=== PATIENT | male | born 1955 | race Caucasian/White ===

== ENCOUNTER 2019-05-30 23:00 | Inpatient (IN) | payer OTHER, MEDICAID ==
[~2019-05-30] VITALS: Ht 170.2 cm; Wt 68.4 kg
--- NOTE | ~2019-05-30 | PROC ---
[facility] [address] [place] [address] PROCEDURE REPORT Name: DAVID SCHMIDT Room: [address] IN ..#: [id number] Admission: 05/31/19 Attend Phys: Lupillo Lewis MD Discharge: 06/08/19 Date of : 57 Report #: [id number] THIS REPORT FOR: //name// For GI report, please see the Provation report in Perceptive 7 content. By: [id number] Records Staff RUTH ANN /JHONY
[~2019-05-30 23:00] MED LIST: ALDACTONE25 MG PO; AMBIEN 10 MG TA10 MG PO; ASPIR 8181 MG PO; BUPROPION HCL150 M1 PO; CARDIZEM CD120 MG PO; CEPHALEXIN 500500 M3 PO; CIPRO500 MG PO; COREG; COREG6.25 MG PO; COUMADIN 5 MG TA5 M1 PO; CRESTOR10 MG PO; CYMBALTA60 MG PO; DOXYCYCLINE 10100 MG PO; EFFIENT10 MG PO; FLAGYL500 MG PO; GABAPENTIN100 MG PO; HYDROCODONE-AP1 EAC6 PO; LANOXIN 0.250.25 M1 PO; LASIX 20 MG TAB20 MG PO; METOLAZONE 5 MG5 MG PO; NEXIUM40 MG PO; NITROGLYCERIN0.4 MG SUBLING; NORCO 10-325 T1 EACH PO; NORCO 5-325 TA1 EACH PO; OXYGEN; OXYGEN NASAL; POTASSIUM20 PO; PROVENTIL; RANEXA500 MG PO; RANITIDINE; SINGULAIR 10 MG10 M1 PO; SPIRIVA INH; SPIRONOLACTONE; SYMBICORT160 MCG/4. INH; TESSALON PERLE100 MG PO; VENTOLIN HFA 1818 GM INH; XANAX 0.5 MG0.5 MG PO; ZANTAC 150MG T150 MG PO; [UNRECOGNIZED DRUG - OTHER]
[2019-05-30 23:02] VITALS: BP 133/90
[2019-05-30 23:24] LABS: HEMATOCRIT 50.8 % (42.0-52.0); MCH 30.2 pg (26.0-34.0); MCHC 33.5 g/dL (28.0-37.0); MCV 90.2 fL (80.0-100.0); MPV 8.5 fl. (7.2-11.1); NUCLEATED RBCS 0 /100WBC; PLATELET COUNT* 220 thou/uL (150-400); RBC 5.63 mil/uL (4.50-6.00); RDW-CV 14.4 % (10.5-14.5); WBC 9.4 thou/uL (4.0-11.0)
[2019-05-30 23:32] LABS: CALCIUM 8.2 mg/dL (8.5-10.1); CREATININE 0.7 mg/dL (0.6-1.3)
[2019-05-30 23:51] LABS: ALBUMIN 3.4 g/dL (3.4-5.0); TOTAL BILIRUBIN 0.4 mg/dL (<0.1-1.0); TOTAL PROTEIN 7.2 g/dL (6.4-8.2); TROPONIN-I LEVEL 0.06 ng/mL (<0.06)
[2019-05-31] VITALS (46 sets, daily range): BP systolic 88–140; BP diastolic 39–84
[2019-05-31 00:10] LABS: ABSOLUTE BASOPHILS 0.2 thou/uL (0.0-0.2); ABSOLUTE EOSINOPHILS 1.8 thou/uL (0.0-0.7); ABSOLUTE LYMPHOCYTES 2.9 thou/uL (0.8-5.3); ABSOLUTE MONOCYTES 0.8 thou/uL (0.0-1.2); ABSOLUTE NEUTROPHILS 3.7 thou/uL (1.6-8.1); PLATELET ESTIMATE ADEQUATE; TOXIC GRANULATION 1+
[2019-05-31 01:55] LABS: BE -4.1 mmol/L (-2 to +3); PO2 65.1 mmHg (75.0-100.0)
[2019-05-31 01:58] LABS: PCO2 50.9 mmHg (35.0-45.0); pH 7.279 (7.340-7.450)
[2019-05-31 04:22] LABS: BE -4.8 mmol/L (-2 to +3)
[2019-05-31 04:24] LABS: PCO2 56.8 mmHg (35.0-45.0); PO2 136.3 mmHg (75.0-100.0); pH 7.238 (7.340-7.450)
--- NOTE | 2019-05-31 06:39 | NUR ---
PATIENT ON UNIT AT 0330. PATIENT AGITATED AND PULLING AT LINES AND BIPAP. ADMINISTERED ATIVAN PER ORDER AND PLACED PATIENT IN BILATERAL SOFT WRIST RESTRAINTS. PATIENT HAS CALMED DOWN SINCE THEN AND RESTRAINTS ARE CURRENTLY OFF PATIENT. TREJO CATHETER PLACED FOR URINARY RETENTION, IMMEDIATE DRAIN OF 1150 ML URINE. UNABLE TO DO FULL ADMISSION DUE TO PATIENT BEING UNRESPONSIVE AND NO FAMILY OR FRIENDS AVAILABLE. BIPAP IN PLACE, O2 SAT 94%. BLOOD PRESSURES SOFT, MAP HAS STAYED > 65
[2019-05-31 12:37] LABS: PO2 87.9 mmHg (75.0-100.0)
[2019-05-31 12:40] LABS: pH 7.286 (7.340-7.450)
--- NOTE | 2019-05-31 14:03 | NUR ---
UNABLE TO MEET WITH PATIENT. HE WAS SEDATED AFTER AGRESSIVE/AGITATED BEHAVIORS WITH STAFF AND IN CT. SLEEPING. NO OTHER FAMILY AT BEDSIDE X2 ATTEMPTS.
--- NOTE | 2019-05-31 15:10 | NUR ---
PATIENT TOLERATED OFF BIPAP FOR ONE HOUR FOR PILLS AND REST. WILL TRY AGAIN AT DINNER.
--- NOTE | 2019-05-31 18:00 | NUR ---
PATIENT PROGRESING WELL TOWARDS GOALS. CIWAS TRENDING DOWN. UP TO COMMODE TO HAVE BOWEL MOVEMENT. BREAKS FROM BIPAP OK TOLERATED. EATING DINNER AT THIS TIME. NO PAIN, NAUSEA OR SHORTNESS OF AIR. PAGING DOCTOR FOR HOME MEDICATIONS TO BE REORDERED. BED IN LOWEST POSITION, CALL LIGHT IN REACH, FALL PRECAUTIONS IN PLACE.
[2019-06-01] VITALS (20 sets, daily range): BP systolic 98–136; BP diastolic 38–79
--- NOTE | 2019-06-01 07:30 | NUR ---
0730 ASSUMED CARE OF PT. PLEASE SEE DOCUMENTED ASSESSMENT. PT IS ALERT TO PERSON, PLACE. STATED IT WAS JUNE. CORRECT DATE PROVIDED TO PT. PT HAS BEEN TAKEN OFF OF BIPAP BY RT AND PLACED ON 2L PER NC. ABG'S TO BE DRAWN. GOALS THIS SHIFT ARE TO: MONITOR RESPIRATORY STATUS, GET OUT OF BED FOR MEALS, EAT, ANTIBIOTICS, AND REHYDRATE.
[2019-06-01 08:18] LABS: BE 2.4 mmol/L (-2 to +3); PCO2 48.6 mmHg (35.0-45.0); PO2 65.5 mmHg (75.0-100.0); pH 7.384 (7.340-7.450)
[2019-06-01 08:42] LABS: HEMATOCRIT 48.5 % (42.0-52.0); HEMOGLOBIN 15.8 gm/dL (14.0-18.0); MCH 29.5 pg (26.0-34.0); MCHC 32.5 g/dL (28.0-37.0); MCV 90.8 fL (80.0-100.0); MPV 8.4 fl. (7.2-11.1); NUCLEATED RBCS 0 /100WBC; PLATELET COUNT* 197 thou/uL (150-400); RBC 5.34 mil/uL (4.50-6.00); RDW-CV 14.7 % (10.5-14.5)
[2019-06-01 08:56] LABS: CALCIUM 8.6 mg/dL (8.5-10.1); CREATININE 0.8 mg/dL (0.6-1.3); POTASSIUM 4.5 mmol/L (3.5-5.1); TOTAL BILIRUBIN 0.3 mg/dL (<0.1-1.0); TOTAL PROTEIN 6.4 g/dL (6.4-8.2)
[2019-06-01 09:48] LABS: ABSOLUTE LYMPHOCYTES 0.8 thou/uL (0.8-5.3); ABSOLUTE MONOCYTES 0.7 thou/uL (0.0-1.2); ABSOLUTE NEUTROPHILS 11.6 thou/uL (1.6-8.1); ANISOCYTOSIS 1+; PLATELET ESTIMATE ADEQUATE; POIKILOCYTOSIS 1+
--- NOTE | 2019-06-01 11:00 | NUR ---
CHART REVIEWED, SPOKE WITH PT. DIFFICULTY KEEPING PT AWAKE DURING THE CONVERSATION. PT STATES HE LIVES IN A MOTEL WITH HIS SIGNIFICANT OTHER, LA NENA. HE SAID THEY DO NOT HAVE A CAR. COULD NOT GET AN ANSWER FROM HIM ON HOW THEY GET GROCERIES, ETC. SPOKE WITH NURSE. SHE SAID THAT PT DOES NOT HAVE ANY CHILDREN, LA NENA HAS 3. LA NENA JUST GOT OUT OF THE HOSPITAL. CASE MGT WILL CONTINUE TO FOLLOW AND ASSESS MORE COMPLETELY AT A LATER DATE.
--- NOTE | 2019-06-01 11:22 | NUR ---
DR. HUMPHRIES HERE ON UNIT. UPDATED ON PT'S PROGRESS. PT WILL NOW BE TELE STATUS.
--- NOTE | 2019-06-01 12:09 | CON ---
[facility] [address] [place] [address] CONSULTATION Name: DAVID SCHMIDT Room: [address] IN M.R.#: [id number] Admission: 05/31/19 Attend Phys: Lupillo Lewis MD Discharge: Date of : 57 Report #: [id number] THIS REPORT FOR: //name// CC: Ru Lewis NEW PATIENT EVALUATION REASON FOR EVALUATION: Acute respiratory failure, altered mental status, known to have COPD. HISTORY OF PRESENT ILLNESS: The patient is a 63-year-old gentleman known to have history of COPD. Last pulmonary function test in the system shows FEV1 of 41% consistent with severe COPD. He came in with worsening shortness of breath. History was obtained from the staff records. The patient is currently on BiPAP. Apparently, the patient was feeling sick with cough over 1 week, has nasal drainage. When he came in, had severe bronchospasm and wheezing. The patient was in severe respiratory distress. Arterial blood gas shows acute on chronic hypercapnic respiratory failure. The patient was intoxicated with alcohol, subsequently was placed on BiPAP, received a breathing treatment and steroids with improvement. Denies any fever, chills, nausea or vomiting. CT angiogram, which I have reviewed, showed significant emphysematous changes. Has right side hazy infiltrate with mediastinal lymphadenopathy, likely reactive. A chest x-ray, right base, hazy infiltrate. Currently, the patient is tolerating BiPAP. Actually he is on AVAPS with tidal volume of 500 and rate of 16. He is not wheezing on my examination. Following simple commands. REVIEW OF SYSTEMS: As above, runny nose, nasal congestion. No fever, no nausea, no vomiting. History of wheezing. Otherwise, unable to obtain comprehensive review of systems as the patient is on BiPAP and is lethargic with alcohol abuse. PAST MEDICAL HISTORY: From records, has history of myocardial infarction in 2001. A previous echocardiogram showed cardiomyopathy, has pacemaker. He has COPD as above with FEV1 41%. History of peptic ulcer disease, anemia. HOME MEDICATIONS: Reviewed as in the chart. On Symbicort, on Singulair. ALLERGIES: ALLERGIC TO LISINOPRIL. FAMILY HISTORY: No pertinent family history of lung disease, per history. SOCIAL HISTORY: Continues to smoke, continues to abuse alcohol, drinks up to 4 [place] [address] CONSULTATION Name: DAVID SCHMIDT Room: [address]#: [id number] Admission: 05/31/19 Attend Phys: Lupillo Lewis MD Discharge: Date of : 57 Report #: [id number] PHYSICAL EXAMINATION: GENERAL: The patient is alert, lethargic, following simple commands; however, lethargic. He is on treatment for alcohol withdrawal. HEAD AND NECK: Supple. Oral mucosa clear. Eyes, anicteric. CHEST: He has no wheezing. Good air movement to both lung bases, diffusely. CARDIOVASCULAR: Regular rhythm, normal S1, S2. ABDOMEN: Soft, nontender. EXTREMITIES: No edema. NEUROLOGIC: Lethargic. PSYCHIATRIC: Unable to evaluate the patient on BiPAP. SKIN: No changes. LABORATORY AND OTHER DATABASE: A pH when he first came in, 7.27; pCO2 50; pO2 65, which has improved to 136. Oxygenation improved to 136 with BiPAP 14/6. However, now on AVAPS as above. Tox screen showed positive serum alcohol, 360. D-dimer 1.8. Hematology: White blood cell count 9.5, platelet 220, hemoglobin 17. CT angiogram, which I have reviewed, significant emphysema as above, right hazy infiltrate, ground glass opacity on the side, suspect aspiration, reactive adenopathy. Has hiatal hernia. No PE. ASSESSMENT AND PLAN: Acute on chronic hypoxic hypercapnic respiratory failure. The patient currently is on AVAPS, tolerating well, more alert. Suspect chronic obstructive pulmonary disease exacerbation with associated aspiration pneumonia. We will add Flagyl for anaerobic coverage. Currently on antibiotics. Agree with IV steroids. Agree with bronchodilator treatment. 1. Chronic obstructive pulmonary disease with exacerbation, has severe chronic obstructive pulmonary disease, FEV1 of 41%. With his severity of chronic obstructive pulmonary disease and hypercapnia, will benefit from home Trilogy. 2. Pneumonia, suspect aspiration. We will need followup CT to confirm resolution in 3 months. 4. Alcohol abuse with hiatal hernia and increased risk of aspiration. Aspiration precaution recommended. Obtain followup ABG. A followup chest x-ray. He was treated with IV fluid for sepsis. Need to obtain followup chest x-ray in the morning, may need diuresis for volume overload, especially with known previous history of cardiomyopathy. We will also obtain arterial blood gas in the morning as well as at this time to confirm improvement. [address] [place] [address] CONSULTATION Name: DAVID SCHMIDT [facility] M.R.#: [id number] Admission: 05/31/19 Attend Phys: Lupillo Lewis MD Discharge: Date of : 57 Report #: [id number] This was discussed with RT, RN and the patient. Critical care time taking care of the patient was 42 minutes. <ELECTRONICALLY SIGNED> By: Nancy Mclean MD 06/01/19 1209 1230 [id number] Mclean MD /nt
--- NOTE | 2019-06-01 14:10 | NUR ---
PT BECOMING INCREASINGLY AGITATED WITH ELEVATED CIWA SCORE, NOW AT 19. PT GIVEN PRN ATIVAN 2MG IVP. PT RESTLESS, PULLING AT LINES, STATING THAT "PITA" IS COMING TO PICK HIM UP, HAVING AUDITORY/VISUAL HALLUCINATIONS. REORIENTATION NOT POSSIBLE AT THIS TIME. PT ASSISTED BACK INTO BED FROM CHAIR. BED ALARM ON FOR SAFETY.
--- NOTE | 2019-06-01 14:53 | EKG ---
[place] [address] ELECTROCARDIOGRAM REPORT Name: DAVID SCHMIDT Room: [address] ADM IN M.R.#: [id number] Admission: 05/31/19 Attend Phys: Lupillo Lewis MD Discharge: Date of : 57 Report #: [id number] THIS REPORT FOR: //name// [facility] ED Test Date: 2019-05-30 Test Time: 23:08:58 Pat Name: DAVID SCHMIDT Department: Room: [address] Gender: M Manager Customer Service: SMOOTH : 1955 Requested By: Dilma Decker Order Number: [id number] Lex MD: Claude Tovar Measurements Intervals [place] Rate: 76 P: 50 VA: 146 QRS: 51 QRSD: 111 T: 156 QT: 426 QTc: 480 Interpretive Statements Sinus rhythm Atrial premature complexes Anterolateral infarct, age indeterminate Compared to ECG 12/13/2016 08:04:22 Atrial premature complex(es) now present T-wave abnormality no longer present Possible ischemia no longer present Myocardial infarct finding still present Electronically Signed On 06-01-2019 14:52:51 CDT by Claude Tovar [email or web address] <ELECTRONICALLY SIGNED> By: Claude Tovar MD, [facility] 06/01/19 1452 Claude Tovar MD, [facility] /EPI
--- NOTE | 2019-06-01 18:49 | NUR ---
OUTCOME SUMMARY: MINIMAL PROGRESSION TOWARDS GOALS. CIWA AT 8 THIS AM AND PT UP TO CHAIR FOR SEVERAL HOURS. GOOD APPETITE AT BREAKFAST AND LUNCH. CIWA ELEVATED THIS AFTERNOON AND PT REQUIRED TWO PRN DOSES OF ATIVAN IVP. PT HAVING FREQUENT AUDITORY/VISUAL HALLUCINATIONS. GOOD UOP AFTER DIURESIS. O2 INCREASED FROM 2L TO 4L THIS SHIFT W/SATS IN THE LOW 90'S. OVERALL PROGNOSIS: POOR.
--- NOTE | 2019-06-01 18:55 | NUR ---
PT TELE STATUS BUT PER PULMONARY NEEDED TO REMAIN IN ICU TODAY.
[2019-06-02] VITALS (12 sets, daily range): BP systolic 114–142; BP diastolic 69–85
[2019-06-02 03:43] LABS: ABSOLUTE BASOPHILS 0.1 thou/uL (0.0-0.2); ABSOLUTE LYMPHOCYTES 0.3 thou/uL (0.8-5.3); ABSOLUTE MONOCYTES 0.4 thou/uL (0.0-1.2); ABSOLUTE NEUTROPHILS 13.1 thou/uL (1.6-8.1); BASOPHILS 0.6 %; HEMATOCRIT 48.1 % (42.0-52.0); HEMOGLOBIN 15.8 gm/dL (14.0-18.0); LYMPHOCYTES 2.4 %; MCH 29.7 pg (26.0-34.0); MCHC 32.8 g/dL (28.0-37.0); MCV 90.5 fL (80.0-100.0); MONOCYTES 2.6 %; MPV 8.9 fl. (7.2-11.1); NUCLEATED RBCS 0 /100WBC; PLATELET COUNT* 214 thou/uL (150-400); POLYS 94.4 %; RBC 5.32 mil/uL (4.50-6.00); RDW-CV 14.7 % (10.5-14.5); WBC 13.9 thou/uL (4.0-11.0)
[2019-06-02 04:05] LABS: ALBUMIN 3.1 g/dL (3.4-5.0); CALCIUM 8.5 mg/dL (8.5-10.1); CREATININE 0.7 mg/dL (0.6-1.3); POTASSIUM 4.9 mmol/L (3.5-5.1); TOTAL BILIRUBIN 0.4 mg/dL (<0.1-1.0); TOTAL PROTEIN 6.5 g/dL (6.4-8.2)
--- NOTE | 2019-06-02 06:27 | NUR ---
VSS. NO AGITATED BEHAVIOR THIS SHIFT. PT HAS SLEEP WELL THROUGH THE NIGHT, AROUSABLE. CALL LIGHT WITHIN REACH.
--- NOTE | 2019-06-02 19:15 | NUR ---
PATIENT PROGRESSED WELL TOWARDS GOALS. CIWA'S REMAIN STABLE, SOME HALLUCINATIONS, VERY COOPERATIVE. NO PAIN, NAUSEA OR SHORNTESS OF AIR. BED IN LOWEST POSITION. I AGREE WITH ALL OTHER CHARTING FROM BERTIN Prescott
[2019-06-03 00:01] VITALS: BP 131/74
[2019-06-03 04:02] VITALS: BP 137/77
--- NOTE | 2019-06-03 04:50 | NUR ---
ASSUMED CARE AT 1910H, ON NC AT 4LPM AND TOLERATED. BACK TO BIPAP AT NIGHT. PT WITH OCCASIONAL CONFUSION. LATEST CIWA IS 2. KEPT PT ORIENTED. CONTINUE MONITORING AND TOWARDS GOAL.
[2019-06-03 08:04] VITALS: BP 124/67
[2019-06-03 09:22] LABS: ABSOLUTE LYMPHOCYTES 0.6 thou/uL (0.8-5.3); ABSOLUTE NEUTROPHILS 9.2 thou/uL (1.6-8.1); BASOPHILS 0.3 %; HEMATOCRIT 47.1 % (42.0-52.0); HEMOGLOBIN 15.5 gm/dL (14.0-18.0); LYMPHOCYTES 5.8 %; MCH 29.9 pg (26.0-34.0); MCV 90.7 fL (80.0-100.0); MONOCYTES 9.2 %; MPV 9.2 fl. (7.2-11.1); NUCLEATED RBCS 0 /100WBC; PLATELET COUNT* 193 thou/uL (150-400); POLYS 84.7 %; RBC 5.19 mil/uL (4.50-6.00); RDW-CV 14.4 % (10.5-14.5); WBC 10.9 thou/uL (4.0-11.0)
[2019-06-03 09:41] LABS: ALBUMIN 2.9 g/dL (3.4-5.0); ALKALINE PHOSPHATASE 54 U/L (46-116); ANION GAP 2 mmol/L (7-16); BUN 12 mg/dL (7-18); CALCIUM 8.8 mg/dL (8.5-10.1); CHLORIDE 103 mmol/L (98-107); CO2 35 mmol/L (21-32); CREATININE 0.8 mg/dL (0.6-1.3); GLUCOSE 109 mg/dL (70-99); POTASSIUM 4.7 mmol/L (3.5-5.1); SGOT 11 U/L (15-37); SGPT 19 U/L (30-65); SODIUM 140 mmol/L (136-145); TOTAL BILIRUBIN 0.5 mg/dL (<0.1-1.0); TOTAL PROTEIN 6.2 g/dL (6.4-8.2); TROPONIN-I LEVEL <0.06 ng/mL (<0.06)
[2019-06-03 11:00] VITALS: BP 132/77
--- NOTE | 2019-06-03 14:45 | 2DMMODE ---
[place] [address] 2 D/M-MODE ECHOCARDIOGRAM Name: DAVID CSHMIDT Room: 003-P [facility] IN [facility]#: [id number] Admission: 05/31/19 Attend Phys: Lupillo Lewis, Discharge: Date of : 57 Date of Service: 06/03/19 1445 Report #: [id number] THIS REPORT FOR: //name// APPROVED REPORT Study performed: 06/03/2019 09:47:12 EXAM: Comprehensive 2D, Doppler, and color-flow Echocardiogram Patient Location: In-Patient Room #: 003 Status: routine BSA: 1.89 HR: 80 bpm BP: 137/77 mmHg Rhythm: NSR Other Information Study Quality: Good Indications CAD Elevated Troponin 2D Dimensions IVSd: 13.88 (7-11mm) LVOT Diam: 20.36 (18-24mm) LVDd: 70.02 mm PWd: 11.86 (7-11mm) Ascending Ao: 25.92 (22-36mm) LVDs: 61.89 (25-40mm) Aortic Root: 33.17 mm Volumes Left Atrial Volume (Systole) LA ESV Index: 57.20 mL/m2 Aortic Valve AoV Peak Navjot.: 1.33 m/s AO Peak Gr.: 7.03 mmHg LVOT Max P.39 mmHg AO Mean Gr.: 3.83 mmHg LVOT Mean P.69 mmHg LVOT Max V: 0.59 m/s AO V2 VTI: 23.61 cm LVOT Mean V: 0.38 m/s CARRI (VTI): 1.45 cm2 LVOT V1 VTI: 10.53 cm Mitral Valve E/A Ratio: 1.50 MV Decel. Time: 141.93 [place] [address] 2 D/M-MODE ECHOCARDIOGRAM Name: DAVID SCHMIDT Room: [address] IN ..#: [id number] Admission: 05/31/19 Attend Phys: Lupillo Lewis, Discharge: Date of : 57 Date of Service: 06/03/19 1445 Report #: [id number] MV E Max Navjot.: 0.87 m/s MV PHT: 41.16 ms MVA (PHT): 5.35 cm2 TDI E/Medial E': 12.43 Medial E' Navjot.: 0.07 m/s Pulmonary Valve PV Peak Navjot.: 0.88 m/s PV Peak Gr.: 3.12 mmHg Tricuspid Valve RAP Estimate: 5.00 mmHg TR Peak Gr.: 28.40 mmHg RVSP: 33.00 mmHg PA Pressure: 33.00 mmHg Left Ventricle Left ventricle is severely dilated. The anterior apical mid to distal septal and anteroseptal mcintyre are akinetic. Mild concentric left ventricular hypertrophy. Left ventricular systolic function is severely decreased. LVEF is 20-25%. Transmitral Doppler flow pattern suggests restrictive physiology. Right Ventricle The right ventricle is normal size. The right ventricular systolic function is normal. ICD lead is present in the right ventricle. Atria Left atrium is severely dilated. Right atrium is mildly dilated. Aortic Valve Mild aortic valve sclerosis. No aortic regurgitation is present. There is no aortic valvular stenosis. Mitral Valve The mitral valve is normal in structure. Mild mitral regurgitation. No evidence of mitral valve stenosis. Tricuspid Valve The tricuspid valve is normal in structure. Trace tricuspid regurgitation. Mild pulmonary hypertension. Pulmonic Valve The pulmonary valve is normal in structure. There is no pulmonic [place] [address] 2 D/M-MODE ECHOCARDIOGRAM Name: DAVID SCHMIDT Room: [address] IN [facility]#: [id number] Admission: 05/31/19 Attend Phys: Lupillo Lewis, Discharge: Date of : 57 Date of Service: 06/03/19 1445 Report #: [id number] Great Vessels The aortic root is normal in size. IVC is normal in size and collapses >50% with inspiration. Pericardium There is no pericardial effusion. <Conclusion> Left ventricle is severely dilated. Mild concentric left ventricular hypertrophy. Left ventricular systolic function is severely decreased. LVEF is 20-25%. Transmitral Doppler flow pattern suggests restrictive physiology. The anterior apical mid to distal septal and anteroseptal mcintyre are akinetic. ICD lead is present in the right ventricle. Left atrium is severely dilated. Right atrium is mildly dilated. Mild aortic valve sclerosis. There is no aortic valvular stenosis. Mild mitral regurgitation. Trace tricuspid regurgitation. Mild pulmonary hypertension. IVC is normal in size and collapses >50% with inspiration. <ELECTRONICALLY SIGNED> By: Geoff Dozier MD, FACC 06/03/19 1445 1445 1445 Geoff Dozier MD, FACC /INF
[2019-06-03 16:00] VITALS: BP 118/73
--- NOTE | 2019-06-03 18:41 | NUR ---
PT A&O X3, CONFUSED AT TIMES. TREJO'S CATH OUT AT 11, PT VOIDING PER URINAL, INCONTINENT AT TIMES. TOLERATING DIET. PT SAT IN A RECLINER FOR 4-5 HRS. PT HAS VISUAL HALLUCINATIONS, SEEING PEOPLE IN THE ROOM WITH PLASTIC HEADS. NO AGITATION BUT TRIES TO GET OUT OF BED TO PEE. ATIVAN ADMINISTERED PER EMAR.
[2019-06-04 00:01] VITALS: BP 122/61
[2019-06-04 04:01] VITALS: BP 105/53
[2019-06-04 04:12] LABS: HEMATOCRIT 50.4 % (42.0-52.0); HEMOGLOBIN 16.6 gm/dL (14.0-18.0); MCH 29.7 pg (26.0-34.0); MPV 9.3 fl. (7.2-11.1); RBC 5.6 mil/uL (4.50-6.00); RDW-CV 14.6 % (10.5-14.5); WBC 9.2 thou/uL (4.0-11.0)
[2019-06-04 04:20] LABS: ALBUMIN 2.7 g/dL (3.4-5.0); CALCIUM 8.9 mg/dL (8.5-10.1); CREATININE 0.6 mg/dL (0.6-1.3); MAGNESIUM 1.7 mg/dL (1.8-2.4); POTASSIUM 4.8 mmol/L (3.5-5.1); TOTAL BILIRUBIN 0.7 mg/dL (<0.1-1.0); TOTAL PROTEIN 6.3 g/dL (6.4-8.2)
--- NOTE | 2019-06-04 06:28 | NUR ---
ASSUMED PATIENT CARE AT 1900. PATIENT ALERT AND ORIENTED TIMES FOUR BUT HARD TO UNDERSTAND HE MUMBLES. MINOR COMPLAINT OF A HEADACHE, PO MEDICATION GIVEN. NO HALLUCINATIONS NOTED THIS SHIFT, RN SPECIFICALLY QUESTIONED PATIENT ABOUT SEEING ANYONE OR ANYTHING IN THE ROOM. IVS PATENT TO FLUSHES. RN ASSESSMNET COMPLETED CHARTED
[2019-06-04 08:00] VITALS: BP 98/48
[2019-06-04 12:00] VITALS: BP 117/60
[2019-06-04 16:24] VITALS: BP 103/55
[2019-06-04 20:15] VITALS: BP 115/67
--- NOTE | 2019-06-04 20:44 | NUR ---
ASSUSSMED CARE OF PT APPROX 0730. REASSESSMENT COMPLETED CHARTED. MEDICATIONS GIVEN CHARTED. PT HAD EPISODE OF BOWEL INCONTINCE THIS SHIFT. HOURLY ROUNDED FOR PT SAFTEY, SAFTEY PRECAUTIONS IN PLACE. CALL LIGHT WITHIN REACH AND NEEDS MET. PT EDUCATION ABOUT PLAN OF CARE PT VERBALIZED UNDERSTANDING. PT SLEPT FOR MOST OF THIS SHIFT. NO TREMORS NOTED.
[2019-06-05] VITALS: BP 96/52
[2019-06-05 04:00] VITALS: BP 98/58
--- NOTE | 2019-06-05 06:03 | NUR ---
PT SLEPT MOST OF SHIFT. ASSESSMENT DOCUMENTED. MEDS GIVEN PER E-NOV. IV PATENT. NO REPORTS OF PAIN THIS SHIFT. BIPAP WORN PART OF NIGHT. O2 AT 4L NC. WILL CONTINUE WITH PLAN OF CARE.
[2019-06-05 08:00] VITALS: BP 102/60
--- NOTE | 2019-06-05 10:00 | NUR ---
ASSUMED CARE OF PT AT 0730. PT RESTING IN BED WAITING FOR BREAKFAST. PT A&0X4. PT TRACING SR WITH BBB/ V PACED ON THE SENIOR SQL SERVER DBA. ON 5L NC SAT 93%. PT DENIES ANY PAIN OR SHORTNESS OF BREATH AT THIS TIME. PT UP SBA TO BATHROOM. CIWA CHARTED-0. PT TO HAVE EGD ON FRIDAY. EFFIENT HELD THIS AM. PT GOAL FOR TODAY IS INCREASE ACTIVITY AND TITRATE OXYGEN. AM ASSESSMENT CHARTED. MEDICATIONS PER NOV. PT REPOSITIONS SELF. HOURLY ROUNDING OBSERVED. BED IN LOW POSITION. CALL LIGHT WITHIN REACH. WILL CONTINUE PLAN OF CARE.
[2019-06-05 11:40] VITALS: BP 106/66
[2019-06-05 15:31] VITALS: BP 103/65
--- NOTE | 2019-06-05 18:32 | NUR ---
NO ACUTE CHANGES THROUGHOUT SHIFT. REFER TO CHARTING. PT AMBULATED IN ROOM WITH NO DIFFICULTIES. UNABLE TO TITRATE OXYGEN- PT COMPLAINED OF PAIN X 1 THIS SHIFT-TREATED WITH PRN OXY WITH RELIEF. MEDICATIONS PER NOV. PT REPSOITIONS SELF. HOURLY ROUNDING OBSERVED. BED IN LOW POSITION. CALL LIGHT WITHIN REACH. WILL CONTINUE PLAN OF CARE.
[2019-06-05 21:00] VITALS: BP 108/65
[2019-06-06] VITALS (7 sets, daily range): BP systolic 84–121; BP diastolic 43–68
[2019-06-06 04:33] LABS: HEMATOCRIT 49.7 % (42.0-52.0); HEMOGLOBIN 16.1 gm/dL (14.0-18.0); MCH 29.2 pg (26.0-34.0); MCHC 32.5 g/dL (28.0-37.0); MCV 89.8 fL (80.0-100.0); MPV 8.9 fl. (7.2-11.1); RBC 5.53 mil/uL (4.50-6.00); RDW-CV 14.3 % (10.5-14.5); WBC 8.1 thou/uL (4.0-11.0)
[2019-06-06 04:51] LABS: ALBUMIN 2.7 g/dL (3.4-5.0); CALCIUM 8.4 mg/dL (8.5-10.1); CREATININE 0.8 mg/dL (0.6-1.3); MAGNESIUM 1.7 mg/dL (1.8-2.4); TOTAL BILIRUBIN 0.3 mg/dL (<0.1-1.0); TOTAL PROTEIN 5.7 g/dL (6.4-8.2)
--- NOTE | 2019-06-06 04:51 | NUR ---
PT SLEPT MOST OF SHIFT. ASSESSMENT DOCUMENTED. MEDS GIVEN PER E-MAR. IV PATENT, ABX INFUSED. PT REPORTS FRUSTERATION ABOUT NOT GETTING ENOUGH SLEEP. PT REFUSED BIPAP AND OVERNIGHT BREATHING TX. PT REPORTS PAIN IS CONTROLLED WITH MEDICATIONS. WILL CONTINUE WITH PLAN OF CARE.
--- NOTE | 2019-06-06 17:18 | NUR ---
ASSUMED CARE OF PT AT 0730. PT RESTING IN BED WAITING FOR BREAKFAST. PT ON 2L NC SAT 93%. DENIES ANY SHORTNESS OF BREATH. PT COMPLAINED OF PAIN X 1 THIS AFTERNOON-TREATED WITH PRN OXY WITH RELIEF. PT UP WITH SBA TO BATHROOM. CIWA COMPLETED-0. PT TRACING SR WITH BBB AND PAC'S/ A/V PACED ON THE CLOTHESPIN DRIER OPERATOR. PT NPO AFTER MIDNIGHT FOR EGD IN AM. TO HAVE CXR IN AM. STARTED ON PO AUGMENTIN TODAY. AM ASSESSMENT CHARTED. MEDICATIONS PER NOV. PT REPOSITIONS SELF. HOURLY ROUNDING OBSERVED. BED IN LOW POSITION. CALL LIGHT WITHIN REACH. WILL CONTINUE PLAN OF CARE.
[2019-06-07] VITALS (7 sets, daily range): BP systolic 94–115; BP diastolic 53–65
--- NOTE | 2019-06-07 04:48 | NUR ---
PT SLEPT MOST OF SHIFT. ASSESSMENT DOCUMENTED. MEDS GIVEN PER E-NOV. IV PATENT. PT REPORTS PAIN IS UNDER CONTROL THIS SHIFT. PT REMAINED NPO AFTER 0000. WILL CONTINUE WITH PLAN OF CARE.
--- NOTE | 2019-06-07 09:00 | NUR ---
ASSUMED CARE AFTER REPORT APPROX 0730. A&OX4, ABLE TO EXPRESS NEEDS TO STAFF. GUEST ATTENDANT IN PLACE, SR. O2 SATS 93% 2L NC. NPO FOR EGD SCHEDULED AT 1030 TODAY. UP AD [place] IN ROOM WITH STEADY GAIT TO BATHROOM. NO C/O SOA, PAIN, N/V OR OTHER DISTRESS. CALL LIGHT WITHIN REACH. HOURLY ROUNDING FOR SAFETY AND PATIENT NEEDS.
--- NOTE | 2019-06-07 09:41 | NUR ---
Nutrition: Screen for LOS. Wt WNL, no loss from admit. Albumin and LFT's low, BUN and CO2 high. Lasix and other meds reviewed. NPO for EGD today. Nsg noted pt with some confusion, tolerating po. Only intake recorded 90-100% Assess at low nutrition risk at this time.
--- NOTE | 2019-06-07 10:30 | NUR ---
PACU STAFF TRANSPORTED PATIENT VIA WC FOR GI PROCEDURE.
--- NOTE | 2019-06-07 11:00 | NUR ---
ELIER discussed disposition with Pt. Per Pt, he only has a portable concentrator through [facility] and believes that he will need a concentrator. ELIER updated Dr. ELIER contacted Liza at [facility] and informed of potential referral. O2 testing will need to be completed prior to dc. Pt's goal is to return home. Following.
--- NOTE | 2019-06-07 13:12 | NUR ---
PATIENT BACK TO UNIT VIA AND PACU STAFF. PATIENT TRANSFERRED FROM TO BED ON OWN. A&OX4, ABLE TO EXPRESS NEEDS TO STAFF. C/O PAIN IN NECK & HEAD. STATES IT IS HIS USUAL CHRONIC PAIN. PAIN SCALE NOT GIVEN AT THIS TIME BY PATIENT. REGULAR DIET TRAY DELIVERED TO ROOM. VS OBTAINED, WNL. CALL LIGHT WITHIN REACH.
--- NOTE | 2019-06-07 18:07 | NUR ---
PATIENT COMPLETED EDG TODAY. [place] WELL. GOOD APPETITE. PAIN MED X1 PRN FOR CHRONIC PAIN. PATIENT RESTING. CALL LIGHT WITHIN REACH.
[2019-06-08] VITALS: BP 98/45
[2019-06-08 04:00] VITALS: BP 105/61
--- NOTE | 2019-06-08 05:00 | NUR ---
ASSUMED PATIENT CARE AT 1900. PATIENT ALERT AND ORIENTED TIMES FOUR. MINOR COMPLAINT OF PAIN NOTED, CONTROLLED WITH ORAL MEDICATION. BRUISING ON BILATERAL ARMS HEALING. VACUUM EVAPORATION OPERATOR AND HOURLY ROUNDING COPLETED DOCUMENTED.
[2019-06-08 07:00] VITALS: BP 124/68
--- NOTE | 2019-06-08 08:20 | NUR ---
INITAL ASSESSMENT COMPLETED CHARTED. VSS. SR WITH BBB ON MONITOR. TELE D/C, M/S STATUS NOW. PT DENIES PAIN, CP, SOA, N/V/D AT THIS TIME. PT ALBARO ANY FURTHER NEEDS AT THIS TIME. HOURLY ROUNDING IN PLACE FOR PT SAFETY. CLWR.
[2019-06-08] MEDS ORDERED: PREDNISONE 10 M10 MG PO (10:29)
[2019-06-08] MEDS ORDERED: FLUCONAZOLE 10100 MG PO (10:29)
[2019-06-08] MEDS ORDERED: LASIX 40 MG TAB40 M1 PO (10:29)
[2019-06-08] MEDS ORDERED: AUGMENTIN 875-1 EACH PO (10:29)
[2019-06-08] MEDS ORDERED: COREG6.25 MG PO (10:29)
[2019-06-08] MEDS ORDERED: CIPRO500 MG PO (10:57)
[2019-06-08 11:16] VITALS: BP 124/68
--- NOTE | 2019-06-08 14:03 | CON ---
[address] [address] CONSULTATION Name: DAVID SCHMIDT Room: [address] IN M.R.#: [id number] Admission: 05/31/19 Attend Phys: Lupillo Lewis MD Discharge: 06/08/19 Date of : 57 Report #: [id number] THIS REPORT FOR: //name// CC: Ahalma Lewis DICTATED BY: Emily Blunt [facility] DATE OF SERVICE: 06/04/2019 Please note at the time of this dictation, the patient was seen and physically examined by myself. PCP: Unknown. HISTORY OF PRESENT ILLNESS: This is a 63-year-old man who was admitted with COPD exacerbation and respiratory failure. He has had pneumonia, aspiration, likely alcohol abuse and now with some withdrawal. CT scan showed some esophageal thickening in the distal part. He was complaining of some dysphagia and odynophagia with both liquids and solids for which we were consulted for further evaluation. The patient states this has been ongoing for several weeks and it is progressively getting worse. He states it feels like things get stuck in the back of his throat and on occasion, he will regurgitate or throw up. He has also been taking ibuprofen 2 times a day for extended period of time because he has been out of his pain pills, which he takes on a more regular basis. The patient, back in 2015, had an EGD colon. EGD showed a 5-6 mm hiatal hernia. Colonoscopy showed tubular adenoma polyps, diverticulosis and external hemorrhoids at that time. ALLERGIES: LISINOPRIL. MEDICATIONS: From home include Ranexa, digoxin, potassium, Spiriva, Ventolin, Coreg, Zantac, oxygen, Nexium, Symbicort, Singulair, Cymbalta, Crestor, metolazone, gabapentin, Xanax, Cardizem, bupropion, nitroglycerin, Egnar, Effient and aspirin. PAST MEDICAL HISTORY: Significant for heart disease and lung disease. PAST SURGICAL HISTORY: The patient had an AICD that has been placed. FAMILY HISTORY: Negative for any GI or female cancers. SOCIAL HISTORY: He has heavy alcohol abuse. He does smoke greater than a pack per day for the last 50 years. Denies any illegal drug use. REVIEW OF SYSTEMS: Twelve-point review [place] [address] CONSULTATION Name: DAVID SCHMIDT Room: [address]#: [id number] Admission: 05/31/19 Attend Phys: Lupillo Lewis MD Discharge: 06/08/19 Date of : 57 Report #: [id number] except what is mentioned in the HPI. PHYSICAL EXAMINATION: VITAL SIGNS: Temperature 36.8, pulse 66, respirations 12, blood pressure 95/48. HEART: Regular rate and rhythm. LUNGS: Diminished with expiratory wheezes and crackles noted. ABDOMEN: Soft, positive bowel sounds in all 4 quadrants with some slight epigastric tenderness noted to palpation. LABORATORY DATA: Hemoglobin is 16.5, white count is 9.2, platelets are 201. GFR is 137. IMPRESSION: 1. Dysphagia. 2. Odynophagia. 3. Nonsteroidal anti-inflammatory drug use regularly. 4. Epigastric pain. 5. Anticoagulant therapy, Effient. 6. Chronic obstructive pulmonary disease and O2 dependent. 7. Pneumonia. PLAN: 1. The patient needs an EGD. However, needs to be off his Effient and obtain cardiac and pulmonary clearance first. 2. He can resume his diet. 3. Likely the procedure will need to be performed at the beginning of next week. All of this was discussed with the patient and will be followed over the weekend. Thank you for allowing us to participate in this patient's care. Please do not hesitate to call with any questions in regard to this consult. <ELECTRONICALLY SIGNED> By: Renita Durham MD 06/08/19 1403 1635 [id number] Durham MD /nt
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
--- NOTE | 2019-06-09 17:06 | PATH ---
[facility] [address] [place] [address] PATHOLOGY RPT PROCEDURE Name: DAVID SCHMIDT Room: [address] M.R.#: [id number] Admission: 05/31/19 Date of : 57 Discharge: 06/08/19 Report #: [id number] Path Case #: [id number] [facility] Accession Number: [id number] . 01 Material submitted: . PART A: stomach - GASTRIC BIOPSY FOR GASTRITIS PART B: esophagus - ESOPHAGEAL BIOPSY FOR MONI OF THE ESOPHAGUS . 01 Clinical history: . A. Gastritis B. Moni . 02 Diagnosis: A. Gastric biopsy: - Moderate chronic and active gastritis, typical of reactive gastropathy (chemical gastritis), with erosion, fibrosis and intestinal metaplasia, negative for Helicobacter pylori organisms, granulomas and dysplasia. . B. Esophageal biopsy: - Moni esophagitis. (See comment) . (KATALINA:jhoana; 06/09/2019) QLM 06/09/2019 1609 Local . 02 Comment: The esophageal biopsy (B) shows severe active inflammation with scattered fungal elements, typical of Moni species seen within the superficial epithelium. . Special stain (A): H. pylori immuno. . (KATALINA:mml; 06/09/2019) . 02 Electronically signed: . Hussein Goldstein MD, Pathologist NPI- [id number] . 01 Gross description: . A. The specimen is received in formalin, labeled "David Schmidt, gastric biopsy for gastritis". Received are four segments of pale soriano soft tissue ranging in size from 0.3 to 0.8 cm in maximum dimensions. The specimen is submitted entirely in cassette A1. . B. The specimen is received in formalin, labeled "David Schmidt, esophageal biopsy for moni of the esophagus". Received are five segments of pale soriano soft tissue ranging in size from 0.2 to 0.8 cm in maximum dimensions. The specimen is submitted entirely in cassette [place] [address] PATHOLOGY RPT PROCEDURE Name: DAVID SCHMIDT Room: [address] [place] .R.#: [id number] Admission: 05/31/19 Date of : 57 Discharge: 06/08/19 Report #: [id number] Path Case #: [id number] (CAA; 06/08/2019) QAC/QAC 06/08/2019 0906 Local . 02 Pathologist provided ICD-10: K29.50, B37.81 . 02 CPT . 006655, [id number], [id number] Specimen Comment: A courtesy copy of this report has been sent to Specimen Comment: [phone], , . Specimen Comment: Report sent to ,DR GARCES / DR BALTAZAR Performed at: 01 [facility] [address] [place] [address] [address], [place], [place] [id number] MD Candelario Parnell MD Phone: [phone] Performed at: 02 [facility] [address] [address], [place], [place] [id number] MD Hussein Goldstein MD Phone: [phone]
== END 2019-06-08 13:20 | disposition home or self-care (01) | DRG 871 ==
LOC: M.ERS 23:00 → M.2W 05-31 01:34 → M.ICU 05-31 01:34 → M.TBA-ER 05-31 01:34 → M.ICU 05-31 03:26 → M.2W 06-04 08:05
PROVIDERS: Emergency Medicine; Internal Medicine; Internal Medicine Pulmonary Disease; ADMIT Internal Medicine
PROC: 5A09357 Assistance with Respiratory Ventilation, Less than 24 Consecutive Hours, Continuous Positive Airway Pressure (ICD-10-PCS; principal; 2019-05-31)
PROC: 5A09357 Assistance with Respiratory Ventilation, Less than 24 Consecutive Hours, Continuous Positive Airway Pressure (ICD-10-PCS; 2019-06-01)
PROC: 5A09357 Assistance with Respiratory Ventilation, Less than 24 Consecutive Hours, Continuous Positive Airway Pressure (ICD-10-PCS; 2019-06-02)
PROC: 5A09357 Assistance with Respiratory Ventilation, Less than 24 Consecutive Hours, Continuous Positive Airway Pressure (ICD-10-PCS; 2019-06-03)
PROC: 5A09357 Assistance with Respiratory Ventilation, Less than 24 Consecutive Hours, Continuous Positive Airway Pressure (ICD-10-PCS; 2019-06-05)
PROC: 0DB58ZX Excision of Esophagus, Via Natural or Artificial Opening Endoscopic, Diagnostic (ICD-10-PCS; 2019-06-07)
PROC: 0DB68ZX Excision of Stomach, Via Natural or Artificial Opening Endoscopic, Diagnostic (ICD-10-PCS; 2019-06-07)
DX: A41.9 Sepsis, unspecified organism (principal); J96.22 Acute and chronic respiratory failure with hypercapnia; J69.0 Pneumonitis due to inhalation of food and vomit; J96.21 Acute and chronic respiratory failure with hypoxia; B37.81 Candidal esophagitis; Z23 Encounter for immunization; J06.9 Acute upper respiratory infection, unspecified; F10.129 Alcohol abuse with intoxication, unspecified; Y90.9 Presence of alcohol in blood, level not specified; K44.9 Diaphragmatic hernia without obstruction or gangrene; K57.90 Diverticulosis of intestine, part unspecified, without perforation or abscess without bleeding; R13.10 Dysphagia, unspecified; F17.210 Nicotine dependence, cigarettes, uncomplicated; J98.01 Acute bronchospasm; J43.9 Emphysema, unspecified; I25.10 Atherosclerotic heart disease of native coronary artery without angina pectoris; K21.0 Gastro-esophageal reflux disease with esophagitis; K31.89 Other diseases of stomach and duodenum; K29.70 Gastritis, unspecified, without bleeding; I25.5 Ischemic cardiomyopathy; E78.5 Hyperlipidemia, unspecified; Z95.0 Presence of cardiac pacemaker; Z82.49 Family history of ischemic heart disease and other diseases of the circulatory system; I25.2 Old myocardial infarction; Z87.11 Personal history of peptic ulcer disease; Z79.899 Other long term (current) drug therapy; Z79.82 Long term (current) use of aspirin; Z88.8 Allergy status to other drugs, medicaments and biological substances; Z83.79 Family history of other diseases of the digestive system; Z79.01 Long term (current) use of anticoagulants; Z82.5 Family history of asthma and other chronic lower respiratory diseases; Z79.1 Long term (current) use of non-steroidal anti-inflammatories (NSAID)